=== PATIENT | male | born 1980 | race Caucasian/White ===

== ENCOUNTER 2024-01-01 09:35 | Outpatient (CLI) | payer OTHER, SELFPAY ==
[2024-01-01 12:26] LABS: Anion Gap 7 mmol/L (4-12); Blood Urea Nitrogen 26 mg/dL (9-20); Calcium 9.7 mg/dL (8.4-10.2); Carbon Dioxide 28 mmol/L (22-30); Chloride 104 mmol/L (98-107); Cholesterol 242 mg/dL (0-200); Estimated Glomerular Filt Rate > 60; Glucose 94 mg/dL (65-110); HDL Direct 57 mg/dL; LDL Cholesterol Direct 131 mg/dL; Potassium 4.4 mmol/L (3.4-5.0); Sodium 139 mmol/L (137-145); Triglycerides 113 mg/dL (<150)
[2024-01-01 12:28] LABS: Prostate Specific Antigen 0.3 ng/mL (< OR = 4.0); Thyroid Stimulating Hormone 0.997 uIU/mL (0.465-4.680)
== END 2024-01-01 09:36 | disposition home or self-care (01) ==
LOC: ANHLAB 09:37
PROVIDERS: PCP Family Medicine; Visit Provider Nurse Practitioner Family
DX: Z13.29 Encounter for screening for other suspected endocrine disorder (principal); Z12.5 Encounter for screening for malignant neoplasm of prostate; E78.1 Pure hyperglyceridemia; E78.5 Hyperlipidemia, unspecified
CPT/HCPCS: 36415; 80048; 80061; 84153; 84443; G0103

== ENCOUNTER 2025-07-01 10:17 | Outpatient (CLI) | payer OTHER, SELFPAY ==
[2025-07-01 10:31] LABS: Hematocrit 45.7 % (42.0-52.0); Hemoglobin 15.5 g/dL (14.0-18.0); Immature Granulocyte Percent A 0.3 % (0-0.5); Lymphocytes Absolute Auto 2.35 K/mm3 (0.9-3.2); Mean Corpuscular HGB Conc 33.9 g/dl (32-36); Mean Corpuscular Hemoglobin 30.4 pg (26-34); Mean Corpuscular Volume 89.6 fl (80-100); Nucleated Red Blood Cells Absolute Auto 0.000 K/mm3 (0.0-0.012); Nucleated Red Blood Cells Perc 0.0 % (0.0-0.2); Platelet Count Result 263 k/mm3 (150-375); Red Blood Count 5.10 M/mm3 (4.6-6.20); White Blood Count 10.1 K/mm3 (4.5-10.0)
[2025-07-01 10:56] LABS: Alanine Aminotransferase 28 U/L (6-50); Albumin Level 4.8 g/dL (3.5-5.1); Alkaline Phosphatase 51 U/L (38-126); Anion Gap 8 mmol/L (4-12); Aspartate Amino Transferase 30 U/L (17-59); Bilirubin,Total 0.7 mg/dL (0.2-1.3); Blood Urea Nitrogen 22 mg/dL (9-20); Calcium 9.9 mg/dL (8.4-10.2); Carbon Dioxide 28 mmol/L (22-30); Chloride 102 mmol/L (98-107); Cholesterol 222 mg/dL (0-200); Estimated Glomerular Filt Rate > 60; Glucose 96 mg/dL (65-110); HDL Direct 55 mg/dL; Potassium 4.2 mmol/L (3.4-5.0); Sodium 138 mmol/L (137-145); Total Protein 8.2 g/dL (6.3-8.2); Triglycerides 95 mg/dL (<150)
[2025-07-01 11:31] LABS: Prostate Specific Antigen 0.4 ng/mL (< OR = 4.0); Thyroid Stimulating Hormone 1.490 uIU/mL (0.465-4.680)
[2025-07-01 11:51] LABS: Vitamin B12 729.0 pg/mL (239-931)
--- OUTSIDE RECORDS SUMMARY | 2025-07-01 12:02 | XMS_ITS | Clinical Summary ---
Author Organization [facility] [place] [address] Address [address] [place] [id number] Care Team Providers Care Drapery Maker Name Role Phone Luis Angel Contreras MD Primary Care Provider [phone] Isabel Greenberg Unavailable [phone] Allergies Active Allergy Reactions Criticality Noted Date Comments Penicillins Rash Medium 04/25/2024 Medications omega-3 fatty acids-fish oil 300-1,000 mg capsule Take 2 capsules (2 g total) by mouth daily Active ascorbic acid (VITAMIN C) 500 mg tablet,chewable Take 1 tablet/chew tab (500 mg total) by mouth 2 (two) times a day 60 tablet/chew tab 01/20/2025 Active cholecalciferol (VITAMIN D-3) 2000 unit capsule Take 1 capsule (2,000 Units total) by mouth daily 30 capsule 01/20/2025 Active Active Problems Problem Noted Date Diagnosed Date Incomplete tear of right rotator cuff 01/20/2025 Arthritis of right acromioclavicular joint 08/01 Surgical History Surgery Date Site/Laterality Comments LEG SURGERY 07/16/2000 - 07/15/2001 Right FOOT SURGERY 07/16/1999 - 07/15/2000 Left Family History Medical History Relation Name Comments No Known Problems Brother yvrose No Known Problems Daughter shahida No Known Problems Father pedro Hypertension Mother brandon No Known Problems Sister 1 dori No Known Problems Sister 2 ivonne No Known Problems Son armando Relation Name Status Comments Brother yvrose Alive Daughter shahida Alive Father pedro Alive Mother brandon Alive Sister 1 dori Alive Sister 2 ivonne Alive Son armando Alive Social History Tobacco Use Types Packs/Day Years Used Date Smoking Tobacco: Never Smokeless Tobacco: Never Tobacco Cessation:Counseling Given: Not Answered AUDIT-C Answer Date Recorded Q1: How often do you have a drink containing alc ohol? 2-3 times a week 01/20/2025 Q2: How many drinks containi ng alcohol do you have on a typical day when you are drinking? 1 or 2 01/20/2025 Q3: How often do you have si x or more drinks on one occasion? Never 01/20/2025 Personal Safety Answer Date Recorded Have you ever been in or are you currently in a harmful physical or emotional relationship or is someone making you feel afraid or unsafe? Denies 01/20/2025 Sex and Gender Information Value Date Recorded Sex Assigned at Not on file Legal Sex Male 11:34 AM CDT Gender Identity Not on file Sexual Orientation Not on file Last Filed Vital Signs Vital Sign Reading Time Taken Comments Blood Pressure 156/80 02/05/2025 8:25 AM CDT Pulse 65 02/05/2025 8:25 AM CDT Temperature 36.3 C (97.3 F) 01/20/2025 11:30 AM CDT Respiratory Rate 18 01/20/2025 11:3 0 AM CDT Oxygen Saturation 96% 01/20/2025 11: 30 AM CDT Inhaled Oxygen Concentration - - Weight 84.3 kg (185 lb 14.4 oz) 02/05/2025 8:25 AM CDT Height 180.3 cm (5' 11) 02/05/2025 8:25 AM CDT Body Mass Index 25.93 02/05/2025 8:25 AM CDT Plan of Treatment Health Maintenance Due Date Last Done Comments Depression Screening 1982 Hepatitis C Screening 1982 DTaP/Tdap/Td Vaccine (5 - Tdap) 1993 04/16/1990, 04/02/1987, 01/01/1987, Additional history exists Varicella Vaccines (1 of 2 - 13+ 2-dose series) 1995 Hepatitis B Screening 2000 Regular Well Visit/Exam 18-64 2000 HPV Vaccines (1 - 3-dose SCDM series) 2009 Influenza Vaccine (#1) 2025 Pneumococcal vaccine <65 Aged Out No longer eligible based on patient's age to complete this topic Insurance [employer] Care Teams Drapery Maker Relationship Specialty Start Date End Date Luis Angel Contreras MD [address] [place] [address] PCP - General Family Medicine 03/25/24 Isabel Greenberg PA [address] [place] [address] [address] [place] [address] Physician Specialty Therapist Orthopedic Surgery 01/20/25
== END 2025-07-01 10:18 | disposition home or self-care (01) ==
PROVIDERS: PCP Family Medicine; Visit Provider Nurse Practitioner Family
DX: E78.5 Hyperlipidemia, unspecified (principal); E55.9 Vitamin D deficiency, unspecified; Z13.1 Encounter for screening for diabetes mellitus; Z13.220 Encounter for screening for lipoid disorders; Z12.5 Encounter for screening for malignant neoplasm of prostate; Z13.29 Encounter for screening for other suspected endocrine disorder
CPT/HCPCS: 36415; 80053; 80061; 82306; 82607; 82746; 84153; 84443; 85025; G0103